=== PATIENT | male | born 1980 | race Caucasian/White ===

== ENCOUNTER 2021-05-14 08:56 | Emergency (ER) | payer BC ==
[~2021-05-14] VITALS: Ht 165.1 cm; Wt 108.9 kg
[2021-05-14] MEDS ORDERED: CASIRIVIMAB/IMDEVIMAB 10 ML in SODIUM CHLORIDE 0.9% 100 ML IV ONE (09:15)
[2021-05-14] MEDS ORDERED: SODIUM CHLORIDE 0.9% 100 ML ONE (09:15)
== END 2021-05-14 10:42 | disposition home or self-care (01) ==
LOC: ER 09:35
DX: U07.1 COVID-19 (principal); E66.9 Obesity, unspecified; Z68.39 Body mass index [BMI] 39.0-39.9, adult
CPT/HCPCS: 99283; J7050